=== PATIENT | male | born 1980 | race Caucasian/White ===

== ENCOUNTER 2021-12-26 13:52 | Emergency (ER) | payer OTHER, SELFPAY ==
[2021-12-26 13:53] VITALS: BP 135/81; PULSE 60; RESP 22; TEMP 36.6; O2SAT 98; BMI 29.1
[2021-12-26] MEDS: Ondansetron 4 MG/2 ML Vial IV ×2 (14:51→16:58)
[2021-12-26] MEDS: Ketorolac 30 MG/ML Syringe IV (14:53)
[2021-12-26] MEDS: Morphine 4 MG/ML Syringe IV ×2 (14:53→16:58)
--- NOTE | 2021-12-26 14:59 | CT_ITS ---
STUDY: CT ABDOMEN AND PELVIS WITHOUT CONTRAST REASON FOR EXAM: Male, 41 years old. Left flank pain. RADIATION DOSAGE (If Supplied By Facility): CTDIvol = ( 11.22 ) mGy, DLP = ( 608.59 ) mGycm TECHNIQUE: Transaxial images were obtained from the dome of the diaphragm to the symphysis pubis without oral contrast, and without intravenous contrast. Sagittal and coronal images were reconstructed. Individualized dose optimization techniques were used for this CT. COMPARISON: None. FINDINGS: The visualized lung bases are unremarkable. The visualized portions of the heart are within normal limits. Normal liver. Normal gallbladder and extrahepatic biliary system. Normal spleen. Normal pancreas. Normal bilateral adrenal glands. There is a 4.8 cm x 5.2 cm cyst in the upper lateral aspect of the right kidney. There is a 4.2 mm calculus in the upper pole calyx of the right kidney. Mild degree of left hydronephrosis. Punctate calculus in the lower pole calyx of the left kidney. Mild dilatation of the left ureter due to a 4.4 mm calculus at the left ureteral vesicle junction. Normal visualized stomach. Normal small intestine. There are scattered colonic diverticula consistent with diverticulosis. The appendix is visualized and appears normal. Normal abdominal aorta. Normal inferior vena cava. Normal retroperitoneum. Normal urinary bladder. Normal abdominal wall. There are mild degenerative changes of the visualized lumbar spine. CT/Abdomen/Pelvis without Cont IMPRESSION: Mild degree of left hydronephrosis and hydroureter due to a 4.4 mm, crescentic left ureterovesical junction. 4.2 mm nonobstructive calculus in the upper pole calyx of the right kidney. 4.8 cm x 5.2 cm cyst in the upper lateral aspect of the right kidney. Electronically Signed: Orlando Pulliam MD at 15:39 EDT ,
[2021-12-26 15:00] LABS: Mucous, Urine 0 SEEN /hpf (<or=2+); Squamous Epithelial Cells - UA 0 SEEN /hpf (0-5)
--- NOTE | 2021-12-26 15:00 | EX.ED.DYSGE1 ---
HPI History of Present Illness Chief Complaint: Flank Pain Informant: patient Onset/Context/Timing Onset: Today Current Severity: Moderate Maximum Severity: Severe Narrative Narrative: Patient presents secondary to left flank pain. He does mention has had diarrhea since eating out at a restaurant on Sunday. It continued throughout the weekend. This morning, Sunday morning, patient developed rather sudden onset of severe left flank pain that is now wrapping around to his side. He states he had a lot of pressure in his penis earlier. He does note that his urine has been strong smelling and dark in color the last several days. He denies history of kidney stones. No fever or chills. PFSH PFSH Medical History no medical history no medical history Home Medications hydrocodone-acetaminophen 5-325mg 5mg-325mg 1 tab PO Q6H PRN pain 3 days #10 tabs 12/26/21 [Rx Last Taken Unknown] ketorolac 10 mg tablet 10 mg PO Q6H PRN pain 3 days #10 tabs 12/26/21 [Rx Last Taken Unknown] ondansetron 4 mg disintegrating tablet 4 mg PO Q8H PRN nausea and vomiting #10 tabs 12/26/21 [Rx Last Taken Unknown] tamsulosin 0.4 mg capsule (Flomax) 0.4 mg PO DAILY #7 caps 12/26/21 [Rx Last Taken Unknown] Allergy/AdvReac Type Severity Reaction Status Date / Time No Known Allergies Allergy Verified 12/26/21 13:55 Surgical History no surgical history no surgical history Social History Smoking Status: Current every day smoker tobacco type: smokeless tobacco ROS ROS ED Constitutional Constitutional ED: Denies chills or fever(s) Eyes Eyes: Denies change in vision or discharge from eye(s) ENT ENT ED: Denies discharge from eye(s), rhinorrhea or sore throat Cardiovascular Cardiovascular: Denies chest pain or palpitations Respiratory/Chest Respiratory/Chest: Denies cough or dyspnea Gastrointestinal Gastrointestinal: Reports abdominal pain and nausea; Denies diarrhea or vomiting Genitourinary Genitourinary ED: Reports dysuria; Denies difficulty urinating Musculoskeletal Musculoskeletal: Reports back pain; Denies extremity pain Integumentary Denies Abrasions or rash Neurologic Neurologic: Denies headache(s) or weakness Allergic/Immunologic Allergic/Immunologic ED: Denies lip swelling or urticaria EXAM Physical Exam Const Vital Signs: 12/26/21 13:53 12/26/21 14:10 Temperature 98 F Temperature Source Temporal Pulse Rate 60 Respiratory Rate 22 H Respiratory Effort Normal Non-Labored Respiratory Pattern Normal Blood Pressure 135/81 H Blood Pressure Mean 99 Pulse Ox 98 Oxygen Delivery Method Room Air Positive well nourished and well developed General Appearance ED: well developed HEENT Reports normocephalic and head/scalp atraumatic Eyes PERRL and EOMs intact bilaterally Neck supple Chest Wall inspection of chest normal and palpation of chest normal Resp normal respiratory effort and clear to auscultation bilaterally Cardio regular rate and regular rhythm GI GI Narrative: Mild left-sided tenderness to palpation. No guarding or rebound. Hypoactive bowel sounds. Palpation: soft Back/Spine General Back: CVA tenderness left Extremity normal to inspection Neuro oriented x3 and no sensory deficits noted Sensorium / Orientation: alert Motor Exam: strength 5/5 throughout Psych mental status grossly normal Skin no rashes or lesions noted MDM MDM MDM Narrative Medical decision making narrative: Patient was given morphine, Toradol, Zofran, IV fluids. Lab work, urinalysis, CT flank obtained. Lab Data Attestation: I reviewed the patient's lab results. Labs: Laboratory Results - last 24 hr 12/26/21 12/26/21 12/26/21 14:52 15:08 15:08 WBC 10.6 RBC 4.79 Hgb 13.8 Hct 41.3 MCV 86.2 MCH 28.8 MCHC 33.4 RDW Std Deviation 42.1 RDW Coeff of Krys 13.3 Plt Count 265 MPV 9.7 Immature Gran % (Auto) 0.500 Neut % (Auto) 73.2 H Lymph % (Auto) 21.0 [place] % (Auto) 4.9 Eos % (Auto) 0.1 Baso % (Auto) 0.3 Absolute Neuts (auto) 7.8 H Absolute Lymphs (auto) 2.22 Nucleated RBC % 0 Sodium 138 Potassium 4.8 Chloride 102 Carbon Dioxide 25.0 Anion Gap 11 BUN 9 Creatinine 1.09 Estim Creat Clear Calc 78.36 Est GFR (MDRD) Af Amer 96 Est GFR (MDRD) Non-Af 80 BUN/Creatinine Ratio 8.3 L Glucose 126 H Calcium 9.3 Urine Color Yellow Urine Clarity Sl. Cloudy Urine pH 6.5 Ur Specific [place] 1.015 Urine Protein 30 H Urine Glucose (UA) Normal Urine Ketones 15 H Urine Occult Blood 250 H Urine Nitrite Negative Urine Bilirubin Negative Urine Urobilinogen Normal Ur Leukocyte Esterase 25 H Urine RBC 25-50 SEEN Urine WBC 5-10 SEEN Ur Squamous Epith Cells 0 SEEN Urine Bacteria 1+ Urine Mucus 0 SEEN Radiography Diagnostic Testing: Clinical Impression(s) from Imaging Studies Abdomen/Pelvis CT 12/26/21 14:59 IMPRESSION: Mild degree of left hydronephrosis and hydroureter due to a 4.4 mm, crescentic left ureterovesical junction. 4.2 mm nonobstructive calculus in the upper pole calyx of the right kidney. 4.8 cm x 5.2 cm cyst in the upper lateral aspect of the right kidney. Electronically Signed: Orlando Pulliam MD at 15:39 EDT , Treatment and Re-Evaluation Narrative: CBC and chemistry studies unremarkable. Urinalysis does show RBCs. There is a small number of white cells with 1+ bacteria. No nitrites. Only [address] flank does reveal a 4.4 mm stone at the left UVJ. There is also a nonobstructive stone noted in the upper pole of the right kidney. There is a cyst noted on the right kidney. On repeat evaluation patient states his pain is starting to return. He will be redosed here. I will get him prescriptions for Ulysses, Zofran, Toradol, Flomax at home. He is referred to urology for follow-up as needed. Return instructions are also discussed. Discharge Plan Triage Chief Complaint: Flank Pain ED Provider: Angy Ashley Dx/Rx/DC Orders Clinical Impression: Kidney stone Instructions: ED Kidney Stone w/ Colic Prescriptions: New ketorolac 10 mg tablet 10 mg PO Q6H PRN (Reason: pain) 3 Days Qty: 10 0RF hydrocodone-acetaminophen 5-325 mg tablet 1 tab PO Q6H PRN (Reason: pain) 3 Days Qty: 10 0RF ondansetron 4 mg tablet,disintegrating 4 mg PO Q8H PRN (Reason: nausea and vomiting) Qty: 10 0RF tamsulosin [Flomax] 0.4 mg capsule 0.4 mg PO DAILY Qty: 7 0RF Primary Care Provider: Care Physician,No Primary Referrals: Grover Fabian MD [STAFF PHYSICIAN] - 3-5 Days if not improving Kian Daley MD [STAFF PHYSICIAN] - Disposition Disposition: Home, Self Care
[2021-12-26 15:02] LABS: Color, Urine Yellow (Yellow); Glucose, Dipstick Normal (Normal); Ketone-Dipstick 15 mg/dl (Negative); Leukocyte Esterase-Dipstick 25 /ul (Negative); Nitrite-Dipstick Negative (Negative); Occult Blood-Urine 250 /ul (Negative); Protein-Dipstick 30 mg/dl (Negative); Specific Gravity, Urine 1.015 (1.002-1.030); Urine Bilirubin Dipstick Negative (Negative); Urine Clarity Sl. Cloudy (Clear); Urine Urobilinogen Normal (Normal); Urine pH 6.5 (5.0 - 8.0)
[2021-12-26 15:05] LABS: Bacteria 1+ /hpf (None Seen); Red Blood Cells-Urine 25-50 SEEN /hpf (0-5); White Blood Cells 5-10 SEEN /hpf (0-5)
[2021-12-26] MEDS: 0.9% Normal Saline 1,000 ML 1000 ML IV (15:13)
[2021-12-26 15:18] LABS: Absolute Lymphocyte Count 2.22 X10^3/uL (0.83-4.51); Absolute Neutrophil Count 7.8 X10^3/uL (2.0-7.7); Basophil# 0.03 X10^3/uL; Basophil% 0.3 % (0-1); Eosinophil# 0.01 X10^3/uL; Eosinophils% 0.1 % (0-5); Hematocrit 41.3 % (40-54); Hemoglobin 13.8 g/dL (13.0-16.5); Lymphocyte # 2.22 X10^3/ul (0.83-4.51); Mean Corp Hgb Conc 33.4 g/dL (32-36); Mean Corpuscular Hgb 28.8 pg (27.0-32.0); Mean Corpuscular Volume 86.2 fL (80-94); Mean Platelet Vol. 9.7 fl (6.2-12.0); Monocyte# 0.52 X10^3/uL; Monocyte% 4.9 % (0-10); NRBC Flagged by Analyzer 0 % (0-5); Neutrophil # 7.75 X10^3/uL (2.7-7.7); Neutrophil % 73.2 % (47-70); Platelet Count 265 K/mm3 (150-450); RBC Distribution Width CV 13.3 % (11.6-14.6); RBC Distribution Width SD 42.1 fl (35.1-43.9); Red Blood Count 4.79 M/mm3 (4.6-6.2); White Blood Count 10.6 K/mm3 (4.4-11.0)
[2021-12-26 15:35] LABS: Anion Gap 11 (5-15); BUN 9 mg/dL (7-18); BUN/Creat Ratio 8.3 RATIO (10-20); Calcium,Total 9.3 mg/dL (8.5-10.1); Chloride 102 mmol/L (98-107); Creatinine, Serum 1.09 mg/dL (0.70-1.30); EST Glomerular Filtration Rate 80 mL/min (>60); Est Glom Filt Rate - Afr Amer 96 mL/min (>60); Estimated Creatinine Clearance 78.36 ml/min; Glucose 126 mg/dL (74-106); Potassium 4.8 mmol/L (3.5-5.1); Sodium Level 138 mmol/L (136-145)
== END 2021-12-26 17:07 | disposition home or self-care (01) ==
PROVIDERS: Emergency Provider Emergency Medicine; Visit Provider Emergency Medicine
DX: N20.0 Calculus of kidney (principal); F17.220 Nicotine dependence, chewing tobacco, uncomplicated
CPT/HCPCS: 74176; 80048; 81001; 85025; 96361; 96374; 96375; 96376; 99284; J7030; A4216; J2405

== ENCOUNTER 2024-01-13 10:36 | Emergency (ER) | payer OTHER, SELFPAY ==
[2024-01-13 10:37] VITALS: BP 159/98; PULSE 75; RESP 16; TEMP 36; O2SAT 98; BMI 35.6
--- NOTE | 2024-01-13 10:43 | CT_ITS ---
EXAM: CT ABDOMEN AND PELVIS WITHOUT INTRAVENOUS CONTRAST CLINICAL INDICATION: right flank pain, hx stone TECHNIQUE: Helically acquired images were obtained of the abdomen and pelvis without intravenous contrast. This CT exam was performed using one or more of the following dose reduction techniques: automated exposure control, adjustment of the mA and/or kV according to patient size, and/or use of iterative reconstruction technique. COMPARISON: 12/26/2021 FINDINGS: LOWER THORAX: Small hiatal hernia. Lung bases are clear. No cardiomegaly. No significant pericardial effusion. ABDOMEN: LIVER: No significant abnormality. Homogeneous. GALLBLADDER AND BILE DUCTS: No significant abnormality. No calcified gallstones. No gallbladder distention or wall edema. No intra- or extrahepatic biliary ductal dilation. PANCREAS: No significant abnormality. No focal cystic mass. SPLEEN: No significant abnormality. Normal size without focal cystic or solid mass. ADRENALS: No significant abnormality. No nodules. KIDNEYS AND URETERS: Upper pole and lower pole right renal calyceal stones measuring up to approximately 4 mm. 4 mm stone at the right ureterovesicular junction with mild right-sided hydroureteronephrosis. Right renal cyst is present again for which no follow-up is indicated. STOMACH AND BOWEL: Colonic diverticulosis without evidence of acute diverticulitis. No stomach or bowel distention. PELVIS: APPENDIX: No evidence of acute appendicitis. BLADDER: No significant abnormality. REPRODUCTIVE: Normal as visualized. No mass. ABDOMEN and PELVIS: INTRAPERITONEAL SPACE: No significant abnormality. No ascites or other fluid collection. No free air. BONES/JOINTS: Degenerative changes in the spine. No suspicious lytic or blastic abnormality. SOFT TISSUES: Small fat-containing umbilical hernia. VASCULATURE: No significant abnormality. Abdominal aorta is non-dilated. LYMPH NODES: No significant abnormality. No enlarged lymph nodes. CT/Abdomen/Pelvis without Cont IMPRESSION: 1. Upper pole and lower pole right renal calyceal stones measuring up to approximately 4 mm. 4 mm stone at the right ureterovesicular junction with mild right-sided hydroureteronephrosis. No left-sided urolithiasis or hydronephrosis. 2. Small hiatal hernia. 3. Colonic diverticulosis without evidence of acute diverticulitis. Electronically Signed: Gomez Gee DO at 11:17 EDT ,
--- NOTE | 2024-01-13 10:44 | EDS_ITS ---
HPI HPI - GI History of Present Illness Chief Complaint: Flank Pain Narrative Narrative: 43-year-old male presents via EMS with right flank pain/right lower quadrant abdominal pain that had sudden onset about an hour and 15 minutes ago. He states that he was eating a donut and had sudden sharp right-sided pain that put him on the floor. He relates history that about 3 years ago he had a kidney stone, but at that time the pain was more in his back. He states as well over the last few days he has had bladder pressure. He denies fevers or chills, but states that he was sweating a lot. He is nauseated but has not vomited. No exacerbating or alleviating symptoms to his pain. He did receive ketorolac from the squad. PFSH [facility] Home Medications ?Medication ?Instructions ?Recorded ?Last Taken ?Type dexamethasone 6 mg tablet 6 mg PO DAILY #5 tabs 09/13/23 Unknown Rx ketorolac 10 mg tablet 10 mg PO TID PRN pain 5 days #15 01/13/24 Unknown Rx tabs oxycodone-acetaminophen 5 mg-325 1 tab PO Q8H PRN pain 3 days #12 01/13/24 Unknown Rx mg tablet (Percocet) tabs tamsulosin 0.4 mg capsule (Flomax) 0.4 mg PO QHS #10 caps 01/13/24 Unknown Rx Allergy/AdvReac Type Severity Reaction Status Date / Time No Known Allergies Allergy Verified 09/13/23 10:12 Social History Smoking Status: Current every day smoker tobacco type: smokeless tobacco ROS ROS ED ROS Narrative Constitutional: No fever, no chills. Was diaphoretic. HEENT: No sore throat. No neck pain. No loss of vision. No rhinorrhea. Cardiovascular: No chest pain. No palpitations. No pedal edema. Respiratory: No cough, no shortness of breath. Abdominal: Positive right lower quadrant abdominal pain. Positive nausea. No vomiting. Genitourinary: Questionable dysuria. Bladder pressure. No hematuria. Musculoskeletal: No myalgias. No arthralgias. Neurologic: No headaches. No dizziness. No lightheadedness. Skin: No rash. No change in color. Psychiatric: No depression. No anxiety. EXAM Physical Exam Narrative Exam Narrative: Afebrile. Vital signs noted. HEENT: Normocephalic. Atraumatic. PERRL, EOMI. Neck soft and supple. No point tenderness or step off. Cardiovascular: Regular rate and rhythm. No murmurs, rubs, or gallops appreciated. Respiratory: No tachypnea. Lungs clear to auscultation bilaterally. Gastrointestinal: Abdomen soft, nontender, with normoactive bowel sounds. No rebound or guarding. No CVA tenderness to percussion. Negative heel strike. Neurological: Awake. Alert. Nonfocal, nonlateralizing. Skin: No rash. Normal color. No pallor. Musculoskeletal: No pedal edema. Full range of motion extremities. Const Vital Signs: 01/13/24 10:37 01/13/24 12:00 Temperature 96.8 F L Temperature Source Temporal Pulse Rate 75 73 Respiratory Rate 16 16 Blood Pressure 159/98 H 159/94 H Blood Pressure Mean 118 115 Pulse Ox 98 97 Oxygen Delivery Method Room Air Room Air [facility] Narrative Medical decision making narrative: Differential diagnosis includes but not limited to ureterolithiasis versus pyelonephritis versus musculoskeletal flank pain versus appendicitis. Clinical examination and history does not support appendicitis or musculoskeletal flank pain. Comprehensive workup was pursued. I do feel CT imaging is indicated. As he has already received Toradol per squad, he will be given ondansetron for nausea, and normal saline run at 250 mL/h. I will obtain a CBC and BMP to check his kidney function, I will as well as urinalysis to rule out infection. I reviewed his laboratory work and he has a normal white count of 5.7, hemoglobin 14.4, platelet count normal at 241. Sodium slightly low 135 which I think is nonspecific, BUN 13 and creatinine normal at 1.18, while glucose is elevated at 211 this is a random glucose. Additionally his anion gap is normal at 5. Urinalysis shows 150 occult blood but negative ketones. 0-5 white cells with 10-25 RBCs. While I do not feel antibiotics are indicated as he has normal white count, no fever, with rare bacteria I sent the urine for culture. I reviewed the radiology report of the CT of the abdomen and pelvis and there is a 4 mm right ureterovesicular junction stone causing hydronephrosis. Repeat examination shows him mildly improved. I did offer stronger pain medication as he had received Toradol per squad and has not required other medication but he declined. Given his ureteral calculus, I feel he can be discharged with prescriptions for Flomax, Toradol, and Percocet. He was referred to Dr. Fabian with urology. He was told to return with fever, increased pain, new or worsening symptoms. Disposition is discharged home in stable condition. History & Record Review Discussion w/independent historian: Patient Lab Data Attestation: I reviewed the patient's lab results. Labs: Laboratory Results - last 24 hr 01/13/24 01/13/24 10:50 11:20 WBC 5.7 RBC 4.99 Hgb 14.4 Hct 43.7 MCV 87.6 MCH 28.9 MCHC 33.0 RDW Std Deviation 42.1 RDW Coeff of Krys 13.1 Plt Count 241 MPV 9.9 Immature Gran % (Auto) 0.500 Neut % (Auto) 49.9 Lymph % (Auto) 42.3 H [place] % (Auto) 6.1 Eos % (Auto) 0.7 Baso % (Auto) 0.5 Absolute Neuts (auto) 2.9 Absolute Lymphs (auto) 2.43 Nucleated RBC % 0 Sodium 135 L Potassium 4.3 Chloride 105 Carbon Dioxide 25.0 Anion Gap 5 BUN 13 Creatinine 1.18 Estim Creat Clear Calc 87.32 Est GFR (MDRD) Af Amer 87 Est GFR (MDRD) Non-Af 72 BUN/Creatinine Ratio 11.0 Glucose 211 H Calcium 9.0 Urine Color Yellow Urine Clarity Clear Urine pH 7.0 Ur Specific [place] 1.015 Urine Protein 15 H Urine Glucose (UA) 100 H Urine Ketones Negative Urine Occult Blood 150 H Urine Nitrite Negative Urine Bilirubin Negative Urine Urobilinogen Normal Ur Leukocyte Esterase Negative Urine RBC 10-25 SEEN Urine WBC 0-5 SEEN Ur Squamous Epith Cells 0 SEEN Urine Bacteria RARE Urine Mucus 0 SEEN Discharge Plan Triage Chief Complaint: Flank Pain ED Provider: Manny Brewer Dx/Rx/DC Orders Clinical Impression: Ureterolithiasis, Hydronephrosis due to obstruction of ureter Instructions: ED Kidney Stone with Pain Prescriptions: New tamsulosin [Flomax] 0.4 mg capsule 0.4 mg PO QHS Qty: 10 0RF ketorolac 10 mg tablet 10 mg PO TID PRN (Reason: pain) 5 Days Qty: 15 0RF oxycodone-acetaminophen [Percocet] 5-325 mg tablet 1 tab PO Q8H PRN (Reason: pain) 3 Days Qty: 12 0RF No Action dexamethasone 6 mg tablet 6 mg PO DAILY Qty: 5 0RF Primary Care Provider: Care Physician,No Primary Referrals: Grover Fabian MD [Med Staff - Active Staff] - 1 Week if not improving Care Physician,No Primary [Primary Care Provider] - Activity Restrictions/Additional Instructions: Return to the emergency department with fever, increased pain, new or worsening symptoms. Print Language: Icelandic Disposition Disposition: Home, Self Care
[2024-01-13 11:04] LABS: Absolute Lymphocyte Count 2.43 X10^3/uL (0.83-4.51); Absolute Neutrophil Count 2.9 X10^3/uL (2.0-7.7); Basophil# 0.03 X10^3/uL; Basophil% 0.5 % (0-1); Eosinophil# 0.04 X10^3/uL; Eosinophils% 0.7 % (0-5); Hematocrit 43.7 % (40-54); Hemoglobin 14.4 g/dL (13.0-16.5); Lymphocyte # 2.43 X10^3/ul (0.83-4.51); Lymphocyte % 42.3 % (19-41); Mean Corpuscular Hgb 28.9 pg (27.0-32.0); Mean Corpuscular Volume 87.6 fL (80-94); Mean Platelet Vol. 9.9 fl (6.2-12.0); Monocyte# 0.35 X10^3/uL; Monocyte% 6.1 % (0-10); NRBC Flagged by Analyzer 0 % (0-5); Neutrophil # 2.86 X10^3/uL (2.7-7.7); Neutrophil % 49.9 % (47-70); Platelet Count 241 K/mm3 (150-450); RBC Distribution Width CV 13.1 % (11.6-14.6); RBC Distribution Width SD 42.1 fl (35.1-43.9); Red Blood Count 4.99 M/mm3 (4.6-6.2); White Blood Count 5.7 K/mm3 (4.4-11.0)
[2024-01-13 11:13] LABS: Anion Gap 5 (5-15); BUN 13 mg/dL (7-18); Chloride 105 mmol/L (98-107); Creatinine, Serum 1.18 mg/dL (0.70-1.30); EST Glomerular Filtration Rate 72 mL/min (>60); Est Glom Filt Rate - Afr Amer 87 mL/min (>60); Estimated Creatinine Clearance 87.32 ml/min; Glucose 211 mg/dL (74-106); Potassium 4.3 mmol/L (3.5-5.1); Sodium Level 135 mmol/L (136-145)
[2024-01-13] MEDS: 0.9% Normal Saline (1000mL) 1,000 ML 250 ML IV (11:23)
[2024-01-13 11:25] LABS: Mucous, Urine 0 SEEN /hpf (<or=2+); Squamous Epithelial Cells - UA 0 SEEN /hpf (0-5)
[2024-01-13 11:47] LABS: Color, Urine Yellow (Yellow); Glucose, Dipstick 100 mg/dl (Normal); Ketone-Dipstick Negative (Negative); Leukocyte Esterase-Dipstick Negative /ul (Negative); Nitrite-Dipstick Negative (Negative); Occult Blood-Urine 150 /ul (Negative); Protein-Dipstick 15 mg/dl (Negative); Specific Gravity, Urine 1.015 (1.002-1.030); Urine Bilirubin Dipstick Negative (Negative); Urine Clarity Clear (Clear); Urine Urobilinogen Normal (Normal)
[2024-01-13 12:00] VITALS: BP 159/94; PULSE 73; RESP 16; O2SAT 97
[2024-01-13 12:17] LABS: Bacteria RARE /hpf (None Seen); Red Blood Cells-Urine 10-25 SEEN /hpf (0-5); White Blood Cells 0-5 SEEN /hpf (0-5)
== END 2024-01-13 13:25 | disposition home or self-care (01) ==
PROVIDERS: Emergency Provider Emergency Medicine; Visit Provider Emergency Medicine
DX: N13.2 Hydronephrosis with renal and ureteral calculous obstruction (principal); F17.220 Nicotine dependence, chewing tobacco, uncomplicated
CPT/HCPCS: 74176; 80048; 81001; 85025; 87086; 99283; J7030

== ENCOUNTER 2024-04-03 11:37 | Emergency (ER) | payer OTHER, SELFPAY ==
[2024-04-03 11:38] VITALS: BP 139/97; PULSE 66; RESP 16; TEMP 35.9; O2SAT 99; BMI 33.6
--- NOTE | 2024-04-03 11:52 | EX.ED.GENINJ ---
HPI History of Present Illness Chief Complaint: Head Injury Informant: patient Onset/Context/Timing Onset: Today Mechanism/Context: Fall Quality of Pain: Sharp and - (Squeezing) Location: Right side of head and left side of the neck Worsened by: Nothing Relieved by: Nothing Associated Symptoms Associated Symptoms: Positive for Parasthesias; Negative for Weakness, Loss of function, Inability to ambulate, Loss of consciousness or Amnesia Narrative Narrative: Patient presents with head injury that occurred today. Patient states he was walking while carrying a window. Patient states he tripped and the window fell onto his head. Patient denies any loss of consciousness. Patient admits to some tingling over the right side of his face. Patient states he has some pain in the left side of his neck. Patient describes his pain as sharp and squeezing. Patient states he also had some mild pain in his left leg. Patient was able to ambulate after the fall. Patient admits to some blurred vision. PFSH PFSH Medical History no medical history no medical history Allergy/AdvReac Type Severity Reaction Status Date / Time No Known Allergies Allergy Verified 04/03/24 11:38 Surgical History no surgical history no surgical history Social History household members: spouse housing: house Smoking Status: Current every day smoker tobacco type: smokeless tobacco ROS ROS ED Constitutional Constitutional ED: Denies chills or fever(s) Eyes Eyes: Reports blurry vision ENT ENT ED: Denies rhinorrhea or sore throat Cardiovascular Cardiovascular: Denies chest pain or palpitations Respiratory/Chest Respiratory/Chest: Denies cough or dyspnea Gastrointestinal Gastrointestinal: Reports nausea; Denies vomiting Genitourinary Genitourinary ED: Denies dysuria or hematuria Musculoskeletal Musculoskeletal: Reports neck pain; Denies back pain Integumentary Denies abscess or rash Neurologic Neurologic: Reports headache(s); Denies weakness Allergic/Immunologic Allergic/Immunologic ED: Denies mouth swelling or urticaria EXAM Physical Exam Const Vital Signs: 04/03/24 11:38 04/03/24 11:46 Temperature 96.7 F L Temperature Source Temporal Pulse Rate 66 Respiratory Rate 16 Respiratory Effort Normal Non-Labored Respiratory Depth Normal Respiratory Pattern Normal Blood Pressure 139/97 H Blood Pressure Mean 111 Pulse Ox 99 Oxygen Delivery Method Room Air Room Air Positive well nourished and well developed General Appearance ED: well developed and NAD HEENT HEENT Narrative: There is mild tenderness over the right parietal area. There is no edema or ecchymosis. There is no bony crepitance or step-off noted. Neck Neck Narrative: There is mild tenderness over the left cervical paraspinal muscles. There is no midline tenderness. There is no bony crepitance or step-off. Range of motion is slightly limited in all motions of the cervical spine secondary to pain. Chest Wall palpation of chest normal Resp normal respiratory effort and clear to auscultation bilaterally Cardio regular rhythm Rate: regular rate GI non-tender and non-distended Palpation: soft Extremity normal to inspection and full ROM General Extremety ED: Negative for deformity or edema General Extremity: Negative for deformity or edema Neuro oriented x3, CN's II-XII intact bilaterally, moves all extremities, no focal motor deficits and no sensory deficits noted [place] Coma Scale: document GCS findings Spontaneous Obeys Commands Oriented 15 Sensorium / Orientation: alert Motor Exam: strength 5/5 throughout Psych mental status grossly normal and thought process normal MDM MDM MDM Narrative Medical decision making narrative: Differential diagnosis includes closed head injury, intracranial bleeding, concussion, cervical strain, and cervical spine fracture. CT scan of the brain will be obtained to assess for intracranial bleeding. CT scan of the cervical spine will be obtained to assess for cervical spine fracture. Radiography Diagnostic Testing: Clinical Impression(s) from Imaging Studies Brain CT 04/03/24 12:13 IMPRESSION: Small mucus retention cyst in the floor of the left maxillary sinus otherwise negative noncontrast CT head scan. Electronically Signed: Manny Bryant MD at 12:58 EDT Reading Location ID and State: [facility] / [place] , Service support , Cervical Spine CT 04/03/24 12:[address]: [address] evidence of acute fracture or malalignment of cervical spine, craniocervical junction and cervicothoracic junction. 2. 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 Electronically Signed: Manny Bryant MD at 13:02 EDT , CT scan of the brain was obtained. There is no acute intracranial abnormality. There is a small mucous retention cyst in the floor of the left maxillary sinus. This was interpreted by the radiologist and was also independently reviewed by myself. CT scan of the cervical spine was obtained. There is no acute fracture or spondylolisthesis. There is no soft tissue swelling noted. There is congenital ankylosis of C2 and C3 vertebral bodies and posterior elements. There is no acute process. This was interpreted by the radiologist and was independently reviewed by myself. Treatment and Re-Evaluation Narrative: Patient was advised of his findings. Patient was instructed to drink plenty of fluids. Patient was instructed to take Tylenol or ibuprofen as needed for pain. Patient was instructed to follow-up with his primary care physician in 5 to 7 days. Patient understood and was agreeable with the plan. All questions were answered. Discharge Plan Triage Chief Complaint: Head Injury ED Provider: Damir Claudio Dx/Rx/DC Orders Clinical Impression: Closed head injury, Fall Instructions: ED Head Injury (Adult) Primary Care Provider: Sukhwinder Recio Referrals: Sukhwinder Recio MD [Primary Care Provider] - 5-7 Days Care Physician,No Primary [Non-Staff] - Print Language: Polish Disposition Disposition: Home, Self Care
--- NOTE | 2024-04-03 12:13 | CT_ITS ---
EXAM: CT CERVICAL SPINE WITHOUT INTRAVENOUS CONTRAST CLINICAL INDICATION: Head injury with headache, dizziness, nausea and neck pain. TECHNIQUE: Helically acquired images were obtained of the cervical spine without intravenous contrast. 2D reformatted images were reviewed. This CT exam was performed using one or more of the following dose reduction techniques: automated exposure control, adjustment of the mA and/or kV according to patient size, and/or use of iterative reconstruction technique. RADIATION DOSE: CTDIvol = 26.53 mGy, DLP = 561.6 mGy-cm COMPARISON: No relevant prior studies available. FINDINGS: VERTEBRAE: Degenerative anterolisthesis of C2 and C3 vertebral bodies osseous elements. No fracture. No traumatic subluxation. No discrete lytic or blastic abnormality. Normal alignment. Normal craniocervical junction and cervicothoracic junction. DISCS/SPINAL CANAL/NEURAL FORAMINA: Mild narrowing of the C4-C5 and C5-C6 disc space heights. Normal remaining cervical disc space heights. Normal central canal and intervertebral neuroforamina.. No suspicious cervical extruded disc fragment although limited by the absence of intrathecal contrast. SOFT TISSUES: Unremarkable. No prevertebral soft tissue swelling. LYMPH NODES: Unremarkable. No cervical adenopathy. LUNG APICES: Unremarkable as visualized. Clear. CT/Spine Cervical without Contras IMPRESSION: 1. No CT evidence of acute fracture or malalignment of cervical spine, craniocervical junction and cervicothoracic junction. 2. 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 Electronically Signed: Manny Bryant MD at 13:02 EDT ,
--- NOTE | 2024-04-03 12:13 | CT_ITS ---
EXAM: CT HEAD WITHOUT INTRAVENOUS CONTRAST CLINICAL INDICATION: Head injury with headache, dizziness, nausea and neck pain. TECHNIQUE: Multiple axial images were obtained of the head without intravenous contrast. This CT exam was performed using one or more of the following dose reduction techniques: automated exposure control, adjustment of the mA and/or kV according to patient size, and/or use of iterative reconstruction technique. RADIATION DOSE: CTDIvol = 44.99 mGy, DLP = 779.24 mGy-cm COMPARISON: No relevant prior studies available. FINDINGS: BRAIN AND EXTRA-AXIAL SPACES: Unremarkable. No intra- or extra-axial hemorrhage. No evidence of acute infarct. No intracranial mass or mass effect. There is preservation of the monroe/white matter interface. Posterior fossa structures are unremarkable. Ventricles are appropriate for age. No hydrocephalus. Basal cisterns are patent. BONES/JOINTS: Unremarkable. No discrete lytic or blastic abnormalities. SINUSES: Small mucus retention cyst in the floor of the left maxillary sinus. Normal remaining paranasal sinuses. MASTOID AIR CELLS: Unremarkable. Clear. ORBITS: Visualized globes, extraocular muscles, optic nerves and retrobulbar fat appear unremarkable. CT/Brain/Head without Contrast IMPRESSION: Small mucus retention cyst in the floor of the left maxillary sinus otherwise negative noncontrast CT head scan. Electronically Signed: Manny Bryant MD at 12:58 EDT ,
[2024-04-03 13:38] VITALS: BP 140/80; PULSE 86; O2SAT 96
[2024-04-03 13:51] VITALS: BP 140/80; PULSE 86; RESP 17; TEMP 36.8; O2SAT 96
== END 2024-04-03 13:53 | disposition home or self-care (01) ==
PROVIDERS: Emergency Provider Emergency Medicine; PCP Family Medicine; Visit Provider Emergency Medicine
DX: S09.90XA Unspecified injury of head, initial encounter (principal); H53.8 Other visual disturbances; M54.2 Cervicalgia; R20.2 Paresthesia of skin; W19.XXXA Unspecified fall, initial encounter; W22.8XXA Striking against or struck by other objects, initial encounter; Y93.01 Activity, walking, marching and hiking; R40.2412 Glasgow coma scale score 13-15, at arrival to emergency department; J34.1 Cyst and mucocele of nose and nasal sinus; M79.605 Pain in left leg; Q76.1 Klippel-Feil syndrome; F17.290 Nicotine dependence, other tobacco product, uncomplicated
CPT/HCPCS: 70450; 72125; 99282